=== PATIENT | male | born 1990 | race African-American/Black ===

== ENCOUNTER 2019-04-01 12:38 | Emergency (ER) | payer MEDICAID, OTHER ==
[~2019-04-01] VITALS: Ht 172.7 cm; Wt 101.0 kg
[~2019-04-01 12:38] MED LIST: LORA-249 PO
[2019-04-01] MEDS ORDERED: IBUPROFEN 600MG TABLET PO ONE (16:00)
[2019-04-01 16:23] VITALS: BP 146/86
== END 2019-04-01 16:45 | disposition home or self-care (01) ==
LOC: ER 12:38
DX: R07.89 Other chest pain (principal); F43.10 Post-traumatic stress disorder, unspecified
CPT/HCPCS: 71045; 93005; 99283